=== PATIENT | male | born 1990 | race African-American/Black ===

== ENCOUNTER 2018-07-18 07:37 | Emergency (ER) | payer MEDICAID ==
[~2018-07-18] VITALS: Ht 182.9 cm; Wt 115.0 kg
[2018-07-18] MEDS ORDERED: LORAZEPAM 2MG/ML CPJ ONE (07:42)
[2018-07-18] MEDS ORDERED: SODIUM CHLORIDE 0.9% 1,000 ML IV ONE (08:17)
[2018-07-18] MEDS ORDERED: LEVETIRACETAM 500MG PREMIX 100 ML IV ONE (08:30)
[2018-07-18] MEDS ORDERED: LORAZEPAM 2MG/ML CPJ IV ONE ×2 (08:30)
[2018-07-18 08:55] LABS: CHLORIDE 108 mEq/L (98-107)
[2018-07-18 08:57] LABS: HEMATOCRIT. 46.9 % (42.0-52.0); HEMOGLOBIN. 15.9 g/dL (14.0-18.0); MEAN CORPUSCULAR HEMOGLOBIN 30.6 pg (28.0-32.0); MEAN CORPUSCULAR VOLUME 90.4 fL (80.0-94.0); MEAN PLATELET VOLUME 7.2 fl (7.4-10.4); PLATELET 272 x1000/uL (130-400); RED BLOOD CELL COUNT 5.19 mill/uL (4.7-6.1); RED CELL DISTRIBUTION WIDTH 13.4 % (11.6-14.6)
[2018-07-18 08:59] LABS: ETHANOL BLOOD < 10 mg/dL
[2018-07-18 09:15] LABS: CREATINE KINASE 1535 IU/L (39-308)
[2018-07-18 09:52] LABS: PLATELET ESTIMATE NORMAL
[2018-07-18 10:53] LABS: CLARITY URINE TURBID (CLEAR); COLOR URINE YELLOW (YELLOW); KETONES URINE 1+ (NEGATIVE); LEUKOCYTE ESTERASE URINE NEGATIVE (NEGATIVE); NITRITE URINE NEGATIVE (NEGATIVE); OCCULT BLOOD URINE 1+ (NEGATIVE); PROTEIN URINE 1+ (NEGATIVE); SPECIFIC GRAVITY URINE 1.023 (1.005-1.030); UROBILINOGEN URINE 0.2 E.U./dL (0.2-1.0)
[2018-07-18 11:05] LABS: *BENZODIAZEPINES SCREEN URINE PRESUMTIVE POSITIVE (NEGATIVE); *COCAINE SCREEN URINE NEGATIVE (NEGATIVE); METHADONE URINE SCREEN NEGATIVE (NEGATIVE); OPIATES URINE SCREEN NEGATIVE (NEGATIVE)
[2018-07-18 11:06] LABS: *AMPHETAMINES SCREEN URINE NEGATIVE (NEGATIVE); *BARBITURATES SCREEN URINE NEGATIVE (NEGATIVE); CANNABINOID URINE SCREEN PRESUMTIVE POSITIVE (NEGATIVE); PHENCYCLIDINE URINE SCREEN NEGATIVE (NEGATIVE)
[2018-07-18 12:04] VITALS: BP 103/61
== END 2018-07-18 12:06 | disposition home or self-care (01) ==
LOC: ER 07:37
DX: R56.9 Unspecified convulsions (principal); F12.10 Cannabis abuse, uncomplicated
CPT/HCPCS: 36415; 70450; 71045; 80053; 80305; 80320; 81003; 82140; 82550; 83690; 84443; 85025; 93005; 96365; 96375; 99284; J1953; J2060; J7030; G0480

== ENCOUNTER 2020-05-08 21:42 | Emergency (ER) | payer BC, MEDICAID ==
[~2020-05-08] VITALS: Ht 182.9 cm; Wt 95.0 kg
[2020-05-08] MEDS ORDERED: SODIUM CHLORIDE 0.9% 1,000 ML IV ONE (22:00)
[2020-05-08] MEDS ORDERED: LEVETIRACETAM 500MG PREMIX 100 ML IV ONE ×4 (22:15)
[2020-05-08 22:19] LABS: BASOPHILS % 0.4 % (0.0-2.0); EOSINOPHILS % 3.4 % (0.0-5.0); HEMATOCRIT. 43.1 % (42.0-52.0); HEMOGLOBIN. 14.4 g/dL (14.0-18.0); LYMPHOCYTES % 41.8 % (20.0-50.0); MEAN CORPUSCULAR HEMOGLOBIN 31.1 pg (28.0-32.0); MEAN CORPUSCULAR VOLUME 93.3 fL (80.0-94.0); MONOCYTES % 6.8 % (2.0-8.0); NEUTROPHILS % 47.6 % (40.0-76.0); PLATELET 269 x1000/uL (130-400); RED BLOOD CELL COUNT 4.62 mill/uL (4.7-6.1); RED CELL DISTRIBUTION WIDTH 13.2 % (11.6-14.6)
[2020-05-08 22:26] LABS: CHLORIDE 105 mEq/L (98-107)
[2020-05-08 22:27] LABS: PROTHROMBIN TIME 10.9 sec (9.6-11.0)
[2020-05-08] MEDS ORDERED: LORAZEPAM 2MG/ML CPJ IM ONE ×2 (22:30→23:15)
[2020-05-08 22:48] LABS: CLARITY URINE CLEAR (CLEAR); COLOR URINE YELLOW (YELLOW); KETONES URINE TRACE (NEGATIVE); LEUKOCYTE ESTERASE URINE NEGATIVE (NEGATIVE); NITRITE URINE NEGATIVE (NEGATIVE); OCCULT BLOOD URINE TRACE (NEGATIVE); PROTEIN URINE 1+ (NEGATIVE); SPECIFIC GRAVITY URINE 1.017 (1.005-1.030); UROBILINOGEN URINE 0.2 E.U./dL (0.2-1.0)
[2020-05-08 23:01] LABS: *BARBITURATES SCREEN URINE NEGATIVE (NEGATIVE); *BENZODIAZEPINES SCREEN URINE PRESUMTIVE POSITIVE (NEGATIVE); *COCAINE SCREEN URINE NEGATIVE (NEGATIVE); METHADONE URINE SCREEN NEGATIVE (NEGATIVE); OPIATES URINE SCREEN NEGATIVE (NEGATIVE)
[2020-05-08 23:02] LABS: *AMPHETAMINES SCREEN URINE NEGATIVE (NEGATIVE); CANNABINOID URINE SCREEN PRESUMTIVE POSITIVE (NEGATIVE); PHENCYCLIDINE URINE SCREEN NEGATIVE (NEGATIVE)
[2020-05-09 05:35] VITALS: BP 110/67
== END 2020-05-09 05:40 | disposition left against medical advice (07) ==
LOC: ER 21:42 → CANBEDREQ 05-09 05:35 → ER 05-09 05:40
DX: G40.901 Epilepsy, unspecified, not intractable, with status epilepticus (principal); E87.2 Acidosis; F12.10 Cannabis abuse, uncomplicated
CPT/HCPCS: 36415; 70450; 80053; 80305; 81003; 83605; 85025; 85610; 87040; 93005; 96365; 96366; 96372; 96376; 99285; J1953; J2060; J7030; Z7610; 96367